=== PATIENT | male | born 1935 | race African-American/Black ===

== ENCOUNTER 2020-05-09 08:38 | Emergency (ER) | payer MEDICARE ==
[~2020-05-09] VITALS: Ht 170.2 cm; Wt 72.7 kg
[~2020-05-09 08:38] MED LIST: AMLO10TA8 PO; OXYC5TAB4 PO; TAMS0.4C97 PO
[2020-05-09 10:00] VITALS: BP 148/73
--- NOTE | 2020-05-09 10:12 | PHYS DOC ---
Past Medical History Past Medical History: Hypertension Additional Past Medical Histor: BPH Past Surgical History: Other Additional Past Surgical Histo: cyst removed to L groin Smoking Status: Former Smoker Alcohol Use: None General Adult EDM: Chief Complaint: WOUND CHECK HPI: HPI: History obtained from the patient and . Patient is an 85-year-old male with recent quadricep tendon rupture repair approximately 8 days ago who presents with chief complaint of wound evaluation. He states that his bandage has gradually slipped down lower from his right lower extremity. Denies trauma or injury. Denies increased pain to the area. Denies drainage from the wound. States he does have a follow-up appoint with his orthopedic surgeon in the next 3 days. States he is only here to have his surgical site re-dressed. No other complaints. Review of Systems: Review of Systems: Constitutional: Denies fever or chills. [] Eyes: Denies change in visual acuity. [] HENT: Denies nasal congestion or sore throat. [] Respiratory: Denies cough or shortness of breath. [] Cardiovascular: Denies chest pain or edema. [] GI: Denies abdominal pain, nausea, vomiting, bloody stools or diarrhea. [] : Denies dysuria. [] Musculoskeletal: Denies back pain or joint pain. [] Integument: Denies rash. [] Neurologic: Denies headache, focal weakness or sensory changes. [] Endocrine: Denies polyuria or polydipsia. [] Lymphatic: Denies swollen glands. [] Psychiatric: Denies depression or anxiety. [] Heart Score: Risk Factors: Risk Factors: DM, Current or recent (<one month) smoker, HTN, HLP, family history of CAD, obesity. Risk Scores: Score 0 - 3: 2.5% MACE over next 6 weeks - Discharge Home Score 4 - 6: 20.3% MACE over next 6 weeks - Admit for Clinical Observation Score 7 - 10: 72.7% MACE over next 6 weeks - Early Invasive Strategies Allergies: Allergies: Allergies Coded Allergies Type Severity Reaction Last Updated Verified No Known Drug Allergies 05/01/20 No Physical Exam: PE: Constitutional: Well developed, well nourished, no acute distress, non-toxic appearance. [] HENT: Normocephalic, atraumatic, bilateral external ears normal, oropharynx moist, no oral exudates, nose normal. [] Eyes: PERRLA, EOMI, conjunctiva normal, no discharge. [] Neck: Normal range of motion, no tenderness, supple, no stridor. [] Cardiovascular:Heart rate regular rhythm, no murmur [] Lungs & Thorax: Bilateral breath sounds clear to auscultation [] Abdomen: soft, no tenderness, no masses, no pulsatile masses. [] Skin: Warm, dry, no erythema, no rash. [] Back: No tenderness, no CVA tenderness. [] Extremities: Right knee surgical incision site appears well-healed. Jodi in place. No surrounding induration or erythema. No palpable fluctuance. Crepitus palpated. No overlying erythema. No increased warmth. Neurologic: Alert and oriented X 3, normal motor function, normal sensory function, no focal deficits noted. [] Psychologic: Affect normal, judgement normal, mood normal. [] Current Patient Data: Vital Signs: Vital Signs Date Time Temp Pulse Resp B/P (MAP) Pulse Ox O2 Delivery O2 Flow Rate FiO2 05/09/20 09:35 98.2 87 20 148/73 (98) 99 Room Air 98.2 EKG: EKG: [] Radiology/Procedures: Radiology/Procedures: [] Course & Med Decision Making: Course & Med Decision Making Pertinent Labs and Imaging studies reviewed. (See chart for details) [] Patient is a well-appearing 85-year-old male who presents with chief complaint of wound reevaluation and wound redressing. Clinically patient surgical site appears well-healed. No signs of infection. He did have his wound redressed and wrapped. His right knee brace was positioned appropriately. He does have crutches at bedside to help with ambulation. He was instructed to follow-up with his orthopedic surgeon at his next appointment. Return precautions discussed and understood. Stable for discharge home. Dragon Disclaimer: Draglyric Disclaimer: This electronic medical record was generated, in whole or in part, using a voice recognition dictation system. Departure Departure Impression: Primary Impression: Visit for wound check Disposition: HOME, SELF-CARE Condition: STABLE Referrals: UNKNOWN PCP NAME (PCP) THEE BARLOW MD Patient Instructions: Quadriceps Tendon Tear, Disruption with [facility]hab[facility] Additional Instructions: Please follow-up with the extension specialist at your next scheduled appointment. RASHEED LOU DO May 09, 2020 10:12
== END 2020-05-09 10:40 | disposition home or self-care (01) ==
LOC: ER 08:38
DX: S76.111D Strain of right quadriceps muscle, fascia and tendon, subsequent encounter (principal); I10 Essential (primary) hypertension; Z98.890 Other specified postprocedural states; Z87.891 Personal history of nicotine dependence; W01.0XXD Fall on same level from slipping, tripping and stumbling without subsequent striking against object, subsequent encounter
CPT/HCPCS: 43762; 99284